=== PATIENT | male | born 1950 | race Caucasian/White ===

== ENCOUNTER → 2017-05-04 | Outpatient (CLI) | payer BC | END | disposition home or self-care (01) | LOC: ROC 13:53 | PROVIDERS: ATTEND Radiology Radiation Oncology | DX: C20 Malignant neoplasm of rectum (principal); C18.9 Malignant neoplasm of colon, unspecified | CPT/HCPCS: 99214; G0463 ==

== ENCOUNTER → 2017-05-22 | Outpatient (CLI) | payer BC, MEDICARE | END | disposition home or self-care (01) | LOC: PETCFH 11:40 | PROVIDERS: ATTEND Radiology Radiation Oncology | DX: C20 Malignant neoplasm of rectum (principal); N13.39 Other hydronephrosis; R59.0 Localized enlarged lymph nodes | CPT/HCPCS: 78815; A9552 ==

== ENCOUNTER → 2017-09-14 | Outpatient (CLI) | payer MEDICARE | LOC: ROC 10:22 | PROVIDERS: ATTEND Radiology Radiation Oncology | DX: Z08 Encounter for follow-up examination after completed treatment for malignant neoplasm (principal); C20 Malignant neoplasm of rectum; Z93.3 Colostomy status | CPT/HCPCS: G0463 ==

== ENCOUNTER → 2019-10-04 | Day surgery (SDC) | payer BC, MEDICARE ==
[~2019-10-04] VITALS: Ht 167.6 cm; Wt 65.1 kg
[~2019-10-04] MED LIST: CEFAZOLIN PMX 1GM/50ML 50 ML ONE; FENTANYL PF 100 MCG/2ML ONE; FLUMAZENIL 0.1 MG/1 ML, 5ML ONE; KETOROLAC 30 MG/1 ML IVPush ONE; KETOROLAC 30 MG/1 ML ONE; LIDOCAINE 1%, 10ML ONE; LIDOCAINE 1%, 20ML ONE; MIDAZOLAM 1 MG/ML, 5ML ONE; NALOXONE 1 MG/ML, 2ML ONE; ONDANSETRON 2MG/ML, 2ML ONE; SODIUM CHLORIDE 0.9% 1,000 ML IV SCH
[2019-10-04 10:52] VITALS: BP 150/82
== END | disposition home or self-care (01) ==
LOC: OUT 10:03
PROVIDERS: ATTEND Internal Medicine
DX: Z45.2 Encounter for adjustment and management of vascular access device (principal); C20 Malignant neoplasm of rectum; K56.609 Unspecified intestinal obstruction, unspecified as to partial versus complete obstruction
CPT/HCPCS: 36561; 76937; 77001; 99156; 99157; C1788; J0690; J1642; J2250; J2405; J3010; J7030; J2310

== ENCOUNTER 2021-04-14 08:48 | Day surgery (SDC) | payer BC, MEDICARE ==
[~2021-04-14] VITALS: Ht 167.6 cm; Wt 64.0 kg
[~2021-04-14 08:48] MED LIST changes: +APIX5TAB PO; +CAPE500T24 PO; -CEFAZOLIN PMX 1GM/50ML 50 ML ONE; +CEPH-376 PO; -FENTANYL PF 100 MCG/2ML ONE; -FLUMAZENIL 0.1 MG/1 ML, 5ML ONE; +HYDR-2214 PO; -KETOROLAC 30 MG/1 ML IVPush ONE; -KETOROLAC 30 MG/1 ML ONE; -LIDOCAINE 1%, 10ML ONE; -LIDOCAINE 1%, 20ML ONE; +MAGN400T26 PO; -MIDAZOLAM 1 MG/ML, 5ML ONE; -NALOXONE 1 MG/ML, 2ML ONE; -ONDANSETRON 2MG/ML, 2ML ONE; +PANT40TA6 PO; +PROC10TA78 PO; -SODIUM CHLORIDE 0.9% 1,000 ML IV SCH
[2021-04-14] MEDS ORDERED: APIX5TAB4 PO (09:52)
[2021-04-14] MEDS ORDERED: POTA10TA PO (09:52)
[2021-04-14 09:59] VITALS: BP 116/72
[2021-04-14] MEDS ORDERED: FENTANYL PF 100 MCG/2ML ONE (11:04)
[2021-04-14] MEDS ORDERED: MIDAZOLAM 1 MG/ML, 5ML ONE (11:04)
== END 2021-04-14 12:35 | disposition home or self-care (01) ==
LOC: OUT 08:48 → EDSTATUS 11:00 → OUT 12:35
PROVIDERS: ATTEND Urology
DX: Z46.6 Encounter for fitting and adjustment of urinary device (principal); N13.5 Crossing vessel and stricture of ureter without hydronephrosis; Z79.899 Other long term (current) drug therapy
CPT/HCPCS: 50435; C1729; J2250; J3010